=== PATIENT | male | born 2000 | race Caucasian/White ===

== ENCOUNTER 2024-11-22 06:53 | Emergency (ER) | payer SELFPAY ==
[2024-11-22 06:57] VITALS: BP 122/67; PULSE 66; TEMP 36.6; O2SAT 98; BMI 19.6
--- NOTE | 2024-11-22 07:20 | ED.URI1 ---
HPI - URI/Sore Throat General Chief Complaint: Upper Respiratory Infection Stated Complaint: SOB, COUGH Time Seen by Provider: 11/22/24 07:09 History of Present Illness HPI Narrative: 24-year-old presents for cough. He has had it for 2 weeks and it has been productive of white phlegm. No hemoptysis. 3 days ago he had a fever of 102 degrees. He does not smoke or have a history of asthma. Related Data Home Medications ?Medication ?Instructions ?Recorded ?Confirmed No Known Home Medications 11/22/24 11/22/24 Allergies Allergy/AdvReac Type Severity Reaction Status Date / Time No Known Drug Allergies Allergy Verified 11/22/24 06:57 Review of Systems ROS Narrative A ten point review of systems is negative except as noted above. PFSH PFSH Social History Little interest or pleasure in doing things: not at all Feeling down, depressed, or hopeless: not at all Exam Narrative Exam Narrative: Nurses note and vital signs reviewed and patient is not hypoxic. General: The patient appears well and in no apparent distress. Patient is resting comfortably on cart. Skin: Warm, dry, no pallor noted. There is no rash noted. Head: Normocephalic, atraumatic Eye: Normal conjunctiva, no drainage Ears, Nose, Mouth, and Throat: oral mucosa is moist. Nares patent. Cardiovascular: Regular Rate and Rhythm Respiratory: Patient is in no distress, no accessory muscle use, lungs are clear to auscultation, no wheezing, rales or rhonchi Back: non-tender GI: Soft and nontender Musculoskeletal: The patient has no evidence of calf tenderness, no pitting edema, symmetrical pulses noted bilaterally Neurological: A&O, normal speech Psychiatric: Cooperative Constitutional Vital Signs, click to edit/add: Last Vital Signs Temp 97.9 F 11/22/24 06:57 Pulse 66 11/22/24 06:57 Resp 18 11/22/24 06:57 BP 122/67 11/22/24 06:57 Pulse Ox 98 11/22/24 06:57 O2 Del Method Room Air 11/22/24 06:57 Course Vital Signs Vital signs: Vital Signs Temperature 97.9 F 11/22/24 06:57 Pulse Rate 66 11/22/24 06:57 Respiratory Rate 18 11/22/24 06:57 Blood Pressure 122/67 11/22/24 06:57 Pulse Oximetry 98 11/22/24 06:57 Oxygen Delivery Method Room Air 11/22/24 06:57 Temperature 97.9 F 11/22/24 06:57 Pulse Rate 66 11/22/24 06:57 Respiratory Rate 18 11/22/24 06:57 Blood Pressure 122/67 11/22/24 06:57 Pulse Oximetry 98 11/22/24 06:57 Oxygen Delivery Method Room Air 11/22/24 06:57 MDM - URI/Sore Throat MDM Narrative Medical decision making narrative: COVID test is negative and chest x-ray is negative per radiologist. He tested positive for influenza A. No indication for an antibiotic. Treatment diagnosis and follow-up were discussed with the patient. Tamiflu is not indicated. Differential Diagnosis Differential diagnosis: Likely upper respiratory infection, viral infection and other (COVID, pneumonia) Lab Data Attestation: I reviewed the patient's lab results. Labs: Lab Results 11/22/24 Range/Units 07:11 Influenza Type A Ag Positive A Influenza Type B Ag Negative SARS-CoV-2 Ag (CV2AG) Negative (NEGATIVE) Imaging Data Chest x-ray: Radiologist's impression: ITS Impressions Chest X-Ray 11/22/24 07:30 IMPRESSION: No acute heart or lung disease identified. Electronically authenticated by: ALESSANDRO NEWELL Date: 11/22/2024 07:40 Discharge Plan Discharge Chief Complaint: Upper Respiratory Infection Clinical Impression: Influenza A Patient Disposition: Home, Self-Care Time of Disposition Decision: 07:48 Condition: Good Mode of Transportation: Private Vehicle Prescriptions / Home Meds: No Action No Known Home Medications Print Language: Slovenian Instructions: Influenza (ED), Flu Shot (Vaccine) for Adults (ED) Referrals: HUSSEIN COTO [Primary Care Provider] - 1 week
--- NOTE | 2024-11-22 07:30 | XR_ITS ---
The [address] [address] Patient Name: SCOTT HUDSON MRN: [id number] date: 2000 Sex: M Assigned Patient Location: ER Current Patient Location: ED.MAIN Accession/Order Number: [id number] Exam Date: 11/22/2024 07:25 Report Date: 11/22/2024 07:40 At the request of: PURA MENENDEZ Procedure: XR chest 1V EXAM: XR chest 1V HISTORY: . cough for 2 weeks . COMPARISON: 12/02/2017 TECHNIQUE: Single view of the chest FINDINGS: Heart and vascularity are unremarkable. Lungs are free of focal infiltrates. Grossly no acute bony abnormality is appreciated. XR/XR chest 1V IMPRESSION: No acute heart or lung disease identified. Electronically authenticated by: ALESSANDRO NEWELL Date: 11/22/2024 07:40
[2024-11-22 07:31] LABS: Influenza Virus A Antigen Positive; Influenza Virus B Antigen Negative; Internal Control Within Normal Limits; SARS-CoV-2 Ag NEGATIVE (NEGATIVE)
[2024-11-22 07:53] VITALS: BP 126/88; PULSE 88; O2SAT 98
== END 2024-11-22 07:54 | disposition home or self-care (01) ==
PROVIDERS: Emergency Provider Emergency Medicine; PCP Family Medicine
DX: J10.1 Influenza due to other identified influenza virus with other respiratory manifestations (principal)
CPT/HCPCS: 71045; 87804; 87811; 99284